=== PATIENT | male | born 1950 | race Caucasian/White ===

== ENCOUNTER → 2018-11-13 07:59 | Outpatient (CLI) | payer MEDICARE ==
--- NOTE | 2018-11-23 12:11 | ST ---
PATIENT:MILAN FLORES MEDICAL RECORD: [id number] SEX: M LOCATION:[facility] ORDER #: ADMISSION DATE: 11/13/18 AGE OF PATIENT: 67 REFERRING PHYSICIAN: INTERPRETING PHYSICIAN: HENRY ALFONSO MD DATE OF SERVICE: 11/13/2018 PROCEDURE: Nuclear stress test. INDICATIONS: Angina, abnormal ECG, hypertension, and hyperlipidemia. PROCEDURE DETAILS: He was exercised on standard Lexiscan protocol with 33 mCi of sestamibi injected at peak stress, 10 mCi were used previously for rest images. FINDINGS: Gated SPECT reveals preserved ejection fraction at 69% with good wall motion and thickening and brightening throughout all segments. SPECT imaging Cardiolite was used as myocardial fusion agent. There is homogeneous uptake throughout all segments at rest and stress with no evidence of inducible ischemia or previous infarction. OVERALL IMPRESSION: 1. This is a normal nuclear stress test with no evidence of inducible ischemia or previous infarction. 2. Gated SPECT reveals a preserved ejection fraction at 69%. In this patient with ongoing symptomatology, the current scan does not suggest the presence of hemodynamically significant coronary artery disease. Evaluate noncardiac etiology of chest pain. TRANSINT:[id number] Voice Confirmation ID: [id number] DOCUMENT ID: [id number] HENRY ALFONSO MD at 1211 CC: [id number] DICTATION DATE: 11/16/18 1529 CARDIOVASCULAR DISEASE SPECIALIST: 11/17/18 0029 DEP CLI 11/13/[address] [id number]
== END | disposition home or self-care (01) ==
LOC: D.HCCARDIO 07:59
DX: I20.9 Angina pectoris, unspecified (principal); I10 Essential (primary) hypertension; E78.5 Hyperlipidemia, unspecified